=== PATIENT | female | born 1990 ===

== ENCOUNTER 2017-02-09 18:37 | Emergency (ER) | payer SELFPAY ==
[2017-02-09 19:03] VITALS: BP 133/73
--- NOTE | 2017-02-09 19:33 | EDM.PDOC ---
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 She is a proximally 16 weeks 5 weeks gestation by dates. She states she got tripped up by one of her dogs and fell face first with some contusions to her forehead which she considers minor. Associated low back discomfort as well again which she considers fairly minor. Some contusions to her outstretched hands and palms of her hands but also landed hard on her abdomen. She states she's had some spotting intermittently per vagina for a few days. Feels some lower abdominal cramping discomfort. She is most concerned about potential injury to the fetus or placenta. Onset: Today Onset Date: 02/10/17 Onset Time: 17:00 Duration: Hour(s): Location: Reports: Abdomen, Back (Low back pain), Upper Extremity, Left (Hands and wrists), Upper Extremity, Right (Hands and wrists and wrist) Quality: Reports: Ache, Other (Intermittent abdominal cramping discomfort. 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: Other (see below) Uterine Pain Score (Numeric/FACES): 3 - Related Data Allergies Allergy/AdvReac Type Severity Reaction Status Date / Time Latex, Natural Rubber Allergy Rash Verified 02/09/17 19:03 disolvable stitches Allergy Rash Uncoded 02/09/17 19:03 Home Meds: Home Meds Pnv No.122/Iron/Folic Acid [ Multi Tablet] 1 tab PO DAILY 02/09/17 [ History] Past Medical History - Past Health History Medical/Surgical History: Denies Medical/Surgical History Social & Family History - Family History Family Medical History: Noncontributory - Tobacco Use Smoking Status *Q: Current Every Day Smoker Years of Tobacco use: 10 Packs/Tins Daily: 0.1 - Recreational Drug Use Recreational Drug Use: No - Living Situation & Occupation Living situation: Reports: Occupation: Unemployed (She is a [id number] mom.) ED ROS GENERAL - Review of Systems Review Of Systems: See Below Constitutional: Reports: Fatigue. Denies: Fever, Chills, Malaise, Weakness, Weight Loss HEENT: Reports: Other (Contused her forehead area) Respiratory: Reports: No Symptoms ( and she feels this is minor. There was no loss of consciousness.), Other Cardiovascular: Reports: No Symptoms (Denies any rib or chest wall pain) Endocrine: Reports: No Symptoms GI/Abdominal: Reports: Abdominal Pain (Some lower abdominal discomfort and cramping since she fell.). Denies: Distension, Flatus, Hematemesis, Hematochezia, Melena, Mucous in Stool : Reports: Other (She states she's been spotting per vagina intermittently for the last several days. No active bleeding since the fall.) Musculoskeletal: Reports: Back Pain (Has some low back discomfort since she fell.) Skin: Reports: Bruising (Bruising to her palms of her hands since she fell) Neurological: Reports: No Symptoms Psychiatric: Reports: No Symptoms Hematologic/Lymphatic: Reports: No Symptoms Immunologic: Reports: No Symptoms ED EXAM - Physical Exam Exam: See Below Exam Limited By: No Limitations General Appearance: Alert, WD/WN, No Apparent Distress, Other (Vital signs are stable although she is mildly tachycardic at 10 4/m she is quite anxious.) Throat/Mouth: Other (No injuries to her teeth or tongue.) Head: Other (Has an abrasion to her) Neck: Normal Inspection ( right forehead which is superficial and she considers minor.), Supple, Non-Tender, Full Range of Motion. No: Lymphadenopathy (L), Lymphadenopathy (R) Respiratory/Chest: No Respiratory Distress, Lungs Clear, Normal Breath Sounds, No Accessory Muscle Use, Other (No pain on compression of ribs.) Cardiovascular: Normal Peripheral Pulses, Regular Rate, Rhythm, No Edema, No Murmur GI/Abdominal Exam: Abnormal Bowel Sounds (Hypoactive bowel sounds.), Other ( Gravid uterus palpable 3 cm below the umbilicus compatible with a 17 week gestation. No significant uterine 10 tenderness on palpation.) Fundal Height In cm: 17 Heart Tones: Present (On Doppler.) Movement: Active (On ultrasound.) Back Exam: Normal Inspection, Full Range of Motion. No: CVA Tenderness (L), CVA Tenderness (R) Extremities: Normal Range of Motion, No Pedal Edema, Other (She has some contusions to the thenar eminences of both her hands but no significant open wounds.) Neurological: Alert, Oriented, CN II-XII Intact, Normal Cognition, Normal Gait Psychiatric: Normal Affect, Normal Mood Course - Vital Signs Last Recorded V/S: Last Vital Signs Temp 36.9 C 02/09/17 18:59 Pulse 104 H 02/09/17 18:59 Resp 18 02/09/17 18:59 BP 133/73 02/09/17 18:59 Pulse Ox 98 02/09/17 18:59 - Radiology Interpretation Free Text/Narrative:: 26-year-old female reports that she got tripped up by one of her 2 dogs and fell face first into the concrete. She did hit her forehead but she feels only mild injury in this area. She landed on outstretched hands and has some contusions to her thenar eminences of both hands. No evidence of hand or wrist fractures. She states she landed hard on her abdomen and is concerned about her . She is clinically 16 weeks 5 days . She appreciates some diffuse lower abdominal cramping pain. She's been spotting per vagina for a few days but has had no significant bleeding since the fall 3 hours ago. I did the ultrasound in her room and identified no evidence of placenta abruption and active fetus with good heart tones. Patient reassured no injury to the fetus or placenta identified. He'll of course return if she has any significant bleeding per vagina or develops further severe abdominal cramping pain. Departure - Departure Time of Disposition: 19:30 Disposition: Home, Self-Care 01 Condition: Fair Clinical Impression: 16 weeks gestation of Fall Qualifiers: Encounter type: initial encounter Qualified Code(s): W19.XXXA - Unspecified fall, initial encounter Contusion of hand(s) Qualifiers: Encounter type: initial encounter Laterality: right Qualified Code(s): S60.221A - Contusion of right hand, initial encounter Abrasion of face Qualifiers: Encounter type: initial encounter Qualified Code(s): S00.81XA - Abrasion of other part of head, initial encounter Blunt trauma of abdominal wall Qualifiers: Encounter type: initial encounter Qualified Code(s): S39.81XA - Other specified injuries of abdomen, initial encounter - Discharge Information Instructions: Blunt Abdominal Trauma, Second Trimester of , Abrasion, [id number] Referrals: Justin Cortes MD [Primary Care Provider] - Forms: ED Department Discharge Additional Instructions: Evaluation the emergency room today in regards to injuries sustained from a fall at home today. Dogs tripped up causing you to fall face first. Landed in the score area. Suffered superficial abrasions to the forehead and face. Similarly contusions to both hands and blunt abdominal wall trauma. Abrasion to the right lateral abdominal wall. 16 weeks 5 days by dates. Ultrasound reveals an active fetus and placenta to be intact with no sign of abruption or injury to the placenta or the fetus. Treatment is to cleanse the abrasions with soap and water and apply topical antibiotic for a day or 2 until they heal up completely. No concerns are evident for any injuries to the fetus. Of course return to the ED if there was any significant bleeding per vagina in the next 24 hours by that I mean enough to soak a pad.
== END 2017-02-09 20:45 | disposition home or self-care (01) ==
LOC: JD.ED 18:37
DX: O9A.212 Injury, poisoning and certain other consequences of external causes complicating pregnancy, second trimester (principal); S60.221A Contusion of right hand, initial encounter; S00.81XA Abrasion of other part of head, initial encounter; O99.332 Smoking (tobacco) complicating pregnancy, second trimester; F17.210 Nicotine dependence, cigarettes, uncomplicated; Z91.040 Latex allergy status; Z91.048 Other nonmedicinal substance allergy status; W01.0XXA Fall on same level from slipping, tripping and stumbling without subsequent striking against object, initial encounter; Z3A.16 16 weeks gestation of pregnancy
CPT/HCPCS: 99283; 99284

== ENCOUNTER 2017-07-12 04:50 | Inpatient (IN) | payer SELFPAY ==
[2017-07-12] MEDS ORDERED: Sodium Chloride 0.9% 10 ML Syringe FLUSH PRN (05:07)
[2017-07-12] MEDS: Lactated Ringers 1,000 ML IV SCH ×2 (05:39→08:40)
[2017-07-12] MEDS ORDERED: ePHEDrine 50 MG/ML SDV IVPUSH PRN (05:40)
[2017-07-12] MEDS ORDERED: diphenhydrAMINE 50 MG/ML SDV IVPUSH PRN (05:40)
[2017-07-12] MEDS ORDERED: fentaNYL 100 MCG/2 ML SDV EPIDUR PRN (05:40)
[2017-07-12] MEDS ORDERED: Ondansetron 4 MG/2 ML SDV IVPUSH PRN (05:40)
[2017-07-12] MEDS ORDERED: Bupivacaine/fentaNYL/NS 100 ML Bag EPIDUR SCH (05:45)
[2017-07-12] MEDS ORDERED: Bupivacaine 0.25% 10 ML SDV ONE (07:00)
--- NOTE | 2017-07-12 07:28 | HP ---
DATE OF ADMISSION: 07/12/2017 ADMISSION DIAGNOSIS: A 38 and 2/7th week intrauterine , spontaneous rupture of membranes. HISTORY OF PRESENT ILLNESS: The patient is a 27-year-old 4, para 2-1-0-3 female, who is at 38 and 2/7th weeks gestational age with an WALE of 07/24/2017. She was admitted to Labor and Delivery on the morning of 07/12/2017 with reported rupture of membranes. She had a gush of fluid this a.m. She is jp minimally at this time. The patient has confirmed gross rupture of membranes. Her WALE of 07/24/2017 was determined by an ultrasound done at 13 and 2/7th weeks gestational age on 01/18/2017 and supported by 2 other ultrasounds done on 03/15/2017 and 04/24/2017. She was approximately 4 cm dilated by nursing evaluation. She has gross rupture of membranes. heart tones are reassuring. Group B strep screen is negative. 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 Her last menstrual period was unknown. Her positive hCG was on 11/15/2016. She was not using any control at the time of conception. Her previous deliveries include the followin. Delivery, 11/17/2009, at 41 weeks' gestational age after 6 hours of labor - 10 pounds 3 ounces female infant born via in [place], [place]. The patient had gestational diabetes. Child's name is Lesly. 2. Baby born, 08/19/2012, at 35 weeks gestational age after 2-1/2 hours of labor - 6 pounds 11 ounces female born via in [place], [place]. Gestational diabetes with that - child's name is Lila. 3. Baby born on 12/31/2014 at 39 weeks gestational age after 2-1/2 hours of labor - 7 pounds 5 ounces male born via . Had an epidural with this labor. Born in [place], [place]. Gestational diabetes with this . Child's name is Caden. COURSE: The patient was first seen at approximately 13 weeks and was seen on a fairly regular basis. Her weight gain was from 125 pounds at her first visit to 163 pounds for a 39-pound weight gain. Her vital signs were stable throughout the course and her fundal height growth was appropriate. She had a history of bacterial vaginosis, which was treated during the . She declined genetic evaluation. Her [place] depression screen score on 03/07/2017 was 7/30. Group B strep screen negative. History of macrosomia with previous . The patient plans to breastfeed. laboratory testing shows blood to be O positive with a negative antibody screen. Her hemoglobin is 12.1. Platelets are 281,000. She is rubella immune. RPR is nonreactive. Her urine culture showed Gardnerella vaginalis, which was treated. Hepatitis B surface antigen and HIV assays were negative. Chlamydia and gonorrhea tests were both negative. Her second trimester testing showed a hemoglobin of 11.3. Her platelets were 268,000. Group B strep screen was negative. The patient declined the glucose tolerance test. ALLERGIES: Latex, which causes itching and rash and certain sutures, which cause a rash and swelling. CURRENT MEDICATIONS: vitamins 1 daily. PAST MEDICAL HISTORY: 1. Normal spontaneous vaginal delivery x3, 1 with macrosomic baby weighing 10 pounds 3 ounces. 2. depression with 1st . 3. Gestational diabetes with all 3 pregnancies. The patient refused evaluation this . 4. The patient was transfused after the 1st delivery due to large blood loss at the time of delivery. 5. Latex allergy. PAST SURGICAL HISTORY: Unremarkable. FAMILY HISTORY: Father is at age 66 from an SD. Mother is alive, but has a history of legionnaires disease, which she has not had resolved. Two brothers, 1 with heart problems and adult onset diabetes. Two sisters, 1 with heart murmur, asthma, endometriosis, allergies. Some bleeding type disorder in mother and 1 sister - type unknown. All grandparents are . Maternal grandfather from adult onset diabetes mellitus, gangrene. Maternal grandmother from natural causes. Both paternal grandmother and paternal grandfather secondary to MIs. SOCIAL HISTORY: The patient is . is Miguel A. She does not use any significant amounts of alcohol drugs, but has smoked during the course of the , but is down to 2 cigarettes per day. REVIEW OF SYSTEMS: SKIN: Negative. CARDIOVASCULAR: No chest pain or exercise intolerance. RESPIRATORY: No infectious symptoms or shortness of breath. BREASTS: Negative. GI: Negative. : Increased fundal height consistent with . EXTREMITIES/MUSCULOSKELETAL: Occasional edema during in bilateral lower extremities. NEUROLOGICAL: Negative. PHYSICAL EXAMINATION: GENERAL: The patient is a well-developed, well-nourished, pleasant female, in minimal distress. She is alert and oriented x3 and appears to stated age. HEENT: Neck and back within normal limits. LUNGS: Clear with good breath sounds in all lung valencia. SKIN: Warm, dry, without lesions. CARDIOVASCULAR: Shows regular rate and rhythm without murmurs. LUNGS: Clear with good breath sounds in all lung valencia. BREASTS: Deferred having been done at the time of 1st visit and found to be normal. The patient does plan to breast feed. ABDOMEN: On last fundal height in the clinic was 38 cm with baby in a vertex presentation. CERVIX: On last evaluation in the clinic was 1.5 cm, 10% effaced, -5, medium, and posterior position. EXTREMITIES: Grossly within normal limits. NEUROLOGICAL: Grossly within normal limits. ASSESSMENT: 1. Ortega intrauterine at 38 and 2/7th weeks gestational age with spontaneous rupture of membranes and early labor. Cervical change noted on exam. 2. Group B strep screen negative. 3. The patient is okay with epidural in Labor and Delivery. 4. The patient plans to breast feed. 5. History of smoking in . PLAN: 1. Anticipate normal spontaneous vaginal delivery. 2. CBC. 3. Epidural as desired by the patient. 4. Support decision. MMODAL /[id number]
[2017-07-12] MEDS ORDERED: Oxytocin/Lactated Ringers 10 UNIT/1,000 ML BAG IV SCH ×2 (08:15→10:00)
[2017-07-12] MEDS ORDERED: Benzocaine/Menthol 20%-0.5% Spray 56 GM Canister TOP PRN (15:22)
[2017-07-12] MEDS ORDERED: Ibuprofen 600 MG Tab PO PRN (15:22)
[2017-07-12] MEDS ORDERED: Acetaminophen 325 MG Tab PO PRN (15:22)
[2017-07-12] MEDS ORDERED: Witch Hazel Medicated Pads 100/Jar TOP PRN (15:22)
[2017-07-12] MEDS ORDERED: Docusate Sodium 100 MG Cap PO PRN (15:22)
[2017-07-12] MEDS ORDERED: Lanolin 100% Cream 7 GM Tube TOP PRN (15:22)
--- NOTE | 2017-07-12 16:47 | PCM.SN ---
- Free Text/Narrative Note: Deven is a 27-year-old 4 now para 3[birth year]06/[birth year] white female who is admitted this a.m. in active labor with spontaneous rupture membranes and advanced cervical dilation of 4 cm. Patient's WALE is 07/24/2017 placing her presently at 30-2/7 weeks gestational age. She progressed in labor and viable, salazar female at 1103 hrs. 1103 hours, Apgars were 8/9, weight was 3290grams, (7 pounds 4.1 ounces) length was 18.5 inches, she delivered in occiput anterior position. Baby was completely delivered in routine fashion, nose mouth bulb suctioned baby was placed on mom's abdomen. Umbilical cord had 3 vessels. It was clamped 2 and then was cut by the father of the baby. Cord was then obtained. IV Pitocin was administered IV after delivery of the baby to facilitate increased uterine tone and decrease risk of bleeding. Placenta delivered in a Guo fashion at 1107 hours. It appeared intact and complete and was discarded per patient desire. Patient had no lacerations or stitches. As her boss is 100 mL. Patient plans to nurse. Condition: Good
[2017-07-13 07:52] VITALS: BP 119/88
[2017-07-13] MEDS ORDERED: Prenatal Multivitamin with Calcium/Folic Acid/Iron Tab PO SCH (09:00)
--- NOTE | 2017-07-13 11:19 | PCM48HPAN ---
Post Anesthesia Note - EVALUATION WITHIN 48HRS OF ANESTHETIC Vital Signs in Normal Range: Yes Patient Participated in Evaluation: Yes Respiratory Function Stable: Yes Airway Patent: Yes Cardiovascular Function Stable: Yes Hydration Status Stable: Yes Pain Control Satisfactory: Yes Nausea and Vomiting Control Satisfactory: Yes Mental Status Recovered: Yes - COMMENTS/OBSERVATIONS Free Text/Narrative:: Patient is up walking around. No complications noted. No further questions at this time.
--- NOTE | 2017-07-13 11:37 | PCM.DCSUM1 ---
Discharge Summary - Hospital Course Free Text/Narrative:: Deven is a 27-year-old 4 now para 3//04 white female who is admitted this a.m. in active labor with spontaneous rupture membranes and advanced cervical dilation of 4 cm. Patient's WALE is 07/24/2017 placing her presently at 30-2/7 weeks gestational age. She progressed in labor and viable, salazar female at 1103 hrs. 1103 hours, Apgars were 8/9, weight was 3290grams, (7 pounds 4.1 ounces) length was 18.5 inches, she delivered in occiput anterior position. Baby was completely delivered in routine fashion, nose mouth bulb suctioned baby was placed on mom's abdomen. Umbilical cord had 3 vessels. It was clamped 2 and then was cut by the father of the baby. Cord was then obtained. IV Pitocin was administered IV after delivery of the baby to facilitate increased uterine tone and decrease risk of bleeding. Placenta delivered in a Guo fashion at 1107 hours. It appeared intact and complete and was discarded per patient desire. Patient had no lacerations or stitches. As her boss is 100 mL. Patient plans to nurse. patient is done well. She is ambulating well, nursing without concerns and has minimal lochia. She is voiding without problems. She is desiring discharge home from the hospital. - Discharge Data Discharge Date: 07/13/17 Discharge Disposition: Home, Self-Care 01 Condition: Good - Patient Instructions Diet: Regular Diet as Tolerated (Nursing diet with increased calories and calcium as directed) Activity: As Tolerated (No intercourse or tampons until bleeding resolves) Driving: Do Not Drive (2 days) Showering/Bathing: May Shower (Or take baths) Notify Provider of: Fever, Increased Pain, Swelling and Redness, Nausea and/or Vomiting - Discharge Plan Home Medications: Home Meds Pnv No.122/Iron/Folic Acid [ Multi Tablet] 1 tab PO DAILY 02/09/17 [ History] Acetaminophen [Tylenol] 650 mg PO Q4H PRN tablet 07/13/17 [Rx] Ibuprofen [IJD: Ibuprofen] 600 mg PO Q4H PRN tablet 07/13/17 [Rx] Patient Handouts: Smoking Cessation, Tips for Success, Steps to Quit Smoking Referrals: Justin Cortes MD [Primary Care Provider] - (Return to clinicDr. [facility]es2 weeks.) - Discharge Summary/Plan Comment DC Time >30 min.: No Discharge Summary/Plan Comment: Discharge instructions: 1. Discharge home 2. Diet, activity and follow-up discussed with patient. Recommend nursing diet with increased calories and calcium. 3. Precautions given concern increased pain, bleeding, temperature, signs/ symptoms of DVT/PE. 4. Medications per home medication was printed, discussed with and given to the patient. 5. Return to clinic-Dr. Cortes[facility] in 2 weeks. Diagnosis: Term -delivered Condition: Good - Patient Data Vitals - Most Recent: Last Vital Signs Temp 36.3 C 07/13/17 05:53 Pulse 65 07/13/17 05:53 Resp 16 07/13/17 05:53 BP 119/88 07/13/17 05:53 Pulse Ox 96 07/13/17 05:53 Weight - Most Recent: 74.298 kg I&O - Last 24 hours: Intake & Output 07/12/17 07/13/17 07/13/17 22:59 06:59 14:59 Intake Total 480 0 Balance 480 0 Lab Results - Last 24 hrs: Laboratory Results - last 24 hr 07/13/17 Range/Units 05:45 WBC 12.08 H (3.98-10.04) K/mm3 RBC 3.51 L (3.98-5.22) M/mm3 Hgb 10.3 L (11.2-15.7) gm/L Hct 30.4 L (34.1-44.9) % MCV 86.6 (79.4-94.8) fl MCH 29.3 (25.6-32.2) pg MCHC 33.9 (32.2-35.5) g/dl RDW Std Deviation 47.2 H (36.4-46.3) fL Plt Count 217 (182-369) K/mm3 MPV 10.4 (9.4-12.3) fl Med Orders - Current: Current Medications Acetaminophen (Tylenol) 650 mg PO Q4H PRN PRN Reason: mild pain or fever Benzocaine/Menthol (Dermoplast Pain Relief Alpine) 0 gm TOP ASDIRECTED PRN PRN Reason: Perineal Comfort Measure Docusate Sodium (Colace) 100 mg PO BID PRN PRN Reason: Constipation Emollient Ointment (Lansinoh Hpa) 0 gm TOP ASDIRECTED PRN PRN Reason: Sore Nipples Last Admin: 07/13/17 08:05 Dose: 1 applic Ibuprofen (Motrin) 600 mg PO Q4H PRN PRN Reason: Mild pain or fever Last Admin: 07/13/17 08:06 Dose: 600 mg Prenat Multivit/Br[employer] Sales [employer] Representative/Iron/Folic Ac ( Plus Iron) 1 each PO DAILY DEANN Last Admin: 07/13/17 08:06 Dose: 1 each Witch Sherry (Tucks) 1 pad TOP ASDIRECTED PRN PRN Reason: Hemorrhoid pain Discontinued Medications Bupivacaine HCl (Sensorcaine-Mpf 0.25%) 10 ml .ROUTE .[facility] Stop: 07/12/17 07:01 Diphenhydramine HCl (Benadryl) 25 mg IVPUSH Q6H PRN PRN Reason: Pruritis Ephedrine Sulfate (Ephedrine Sulfate) 5 mg IVPUSH ASDIRECTED PRN PRN Reason: Hypotension Fentanyl (Sublimaze) 100 mcg EPIDUR Q3H PRN PRN Reason: Pain Last Admin: 07/12/17 06:09 Dose: 100 mcg Fentanyl/Bupivacaine HCl (Fentanyl/Bupivacaine/Ns 2 Mcg-0.125% 100 Ml) 100 ml EPIDUR ASDIRECTED [facility] Last Admin: 07/12/17 06:10 Dose: 100 ml Lactated Ringer's (Ringers, Lactated) 1,000 mls @ 100 mls/hr IV ASDIRECTED [facility] Last Admin: 07/12/17 08:40 Dose: 100 mls/hr Oxytocin/Lactated Ringer's (Pitocin In Lr 10 Units/1,000 Ml) 10 unit in 1,000 mls @ 500 mls/hr IV ASDIRECTED DEANN PRN Reason: Protocol Oxytocin/Lactated Ringer's (Pitocin In Lr 10 Units/1,000 Ml) 10 unit in 1,000 mls @ 6 mls/hr IV TITRATE DEANN; 1 MUNITS/MIN PRN Reason: Protocol Last Titration: 07/12/17 11:06 Dose: 83 munits/min, 500 mls/hr Ondansetron HCl (Zofran) 4 mg IVPUSH ONETIME PRN PRN Reason: Nausea/Vomiting Sodium Chloride (Saline Flush) 10 ml FLUSH ASDIRECTED PRN PRN Reason: Keep Vein Open *Q Meaningful Use (DIS) - VTE *Q VTE Criteria *Q: - Stroke *Q Stroke Criteria *Q: - AMI *Q AMI Criteria *Q:
== END 2017-07-13 12:40 | disposition home or self-care (01) | DRG 775 ==
LOC: JD.OB 04:50 → JD.OBCHECK 04:50 → JD.OB 04:58 → INTOOBSV 05:07 → OBSVTOIN 05:07 → JD.OB 11:03 → OBSVTOIN 11:03
PROVIDERS: ADMIT Obstetrics & Gynecology; ATTEND Obstetrics & Gynecology
PROC: 10E0XZZ Delivery of Products of Conception, External Approach (ICD-10-PCS; principal; 2017-07-12)
PROC: 00HU33Z Insertion of Infusion Device into Spinal Canal, Percutaneous Approach (ICD-10-PCS; 2017-07-12)
PROC: 3E0R3BZ Introduction of Anesthetic Agent into Spinal Canal, Percutaneous Approach (ICD-10-PCS; 2017-07-12)
DX: O42.02 Full-term premature rupture of membranes, onset of labor within 24 hours of rupture (principal); Z37.0 Single live birth; Z3A.38 38 weeks gestation of pregnancy; O99.334 Smoking (tobacco) complicating childbirth; F17.210 Nicotine dependence, cigarettes, uncomplicated; Z91.040 Latex allergy status
CPT/HCPCS: 01967; 36415; 51702; 59409; 85027; A9270-GY; J2590; J3010; J7120